=== PATIENT | male | born 1955 | race Caucasian/White ===

== ENCOUNTER 2025-03-24 18:48 | Emergency (ER) | payer OTHER, SELFPAY ==
[2025-03-24 19:07] VITALS: BP 135/80
[2025-03-24 19:41] LABS: Hematocrit 44.5 % (39.0-52.0); Hemoglobin 15.0 g/dL (13.0-18.0); Mean Corp Hgb Conc. 33.7 g/dL (33.0-37.0); Mean Corpuscular Volume 87.4 fL (80.0-94.0); Nucleated Red Blood Cells % 0 % (-); Platelet Count 221 10^3/uL (130-400); Red Cell Dist. Width 13.4 % (11.5-14.5)
[2025-03-24 19:55] LABS: ALT (SGPT) 40 U/L (0-50); AST (SGOT) 29 U/L (17-59); Albumin 4.6 g/dl (3.5-5.0); Alkaline Phosphatase 66 U/L (38-126); Blood Urea Nitrogen 25 mg/dl (9-20); Calcium 10.0 mg/dl (8.4-10.2); Carbon Dioxide 28 mmol/L (22-30); Chloride 104 mmol/L (98-107); Glucose 95 mg/dl (70-99); Potassium 4.7 mmol/L (3.5-5.1); Sodium 139 mmol/L (135-145); Total Protein 7.0 g/dl (6.3-8.2); eGFR > 60.00
[2025-03-24 19:56] LABS: Troponin I < 0.012 ng/ml
--- NOTE | 2025-03-24 22:23 | ED.GENMED ---
History of Present Illness
General
Chief Complaint: Chest Pain
Source: patient and spouse
Time Seen by Provider: 03/24/25 22:21
History of Present Illness
History of Present Illness:
69-year-old male presents to the emergency department with complaints of discomfort in the left side of his neck that will then radiate to the left anterior chest described as a 'tight' feeling. This has been going on for the past few months,
always seems to happen with activity, and resolves with resting. He never experiences any symptoms at rest. He also describes it as a 'pulling' and thinks that maybe it is related to activity. He describes himself is very active. He did take
nitroglycerin yesterday to see if it would help and did not notice a change. The last time he experienced this was yesterday during the daytime. He denies associated diaphoresis, dyspnea, fever, chills, back pain, headache, dizziness, swelling,
abdominal pain, nausea, vomiting, numbness, tingling, or other complaints. Patient has a history of coronary disease and as a result of the symptoms, contacted his inside sales person who states that he cannot be seen for many months.
Past History
Past History
ED Past Medical History: CAD
ED Past Surgical History: Cardiac
Social History
Tobacco: Non-smoker
Alcohol: None
Drug: None
Personal:
Living: with family
Phy Exam
Physical Exam
Physical Exam:
GENERAL: Alert , in no apparent distress
EYE: pupils equal and reactive
NECK: Supple, no significant adenopathy, moves neck easily without hesitation, no swelling noted, no tenderness to palpation.
ENT: o/p clr, mmm.
CARDIAC: Regular rate and rhythm .
LUNGS: Clear breath sounds bilaterally, no acute respiratory distress, no wheezes/rales/rhonchi
ABDOMEN: Soft, without focal tenderness, no r/g, no cvat
NEUROLOGICAL: Alert and oriented, no focal neuro deficits
SKIN: Warm and dry, skin intact.
MUSCULOSKELETAL: No edema, well perfused.
PSYCH: Normal and appropriate interaction.
Course
Orders/Labs/Results
Orders:
Orders
03/24/25 18:49
Electrocardiogram (*1) Urgent
Reason for Study: Chest Pain
EKG- Treatment ONCE
03/24/25 19:16
Electrocardiogram (*1) Urgent
Reason for Study: Other
Other Reason for Exam: Respiratory Distress
Cardiac Monitoring- Treatment ONCE
EKG- Treatment ONCE
IV Insert/Care/Rem.- Treatment PRN
CR Chest - 2 Views Urgent
Comment:
Reason For Exam: respiratory distress
O2 Therapy [RESP] Urgent
Titrate/Wean O2 to maintain O2 sat greater than (%): 93
Special Instructions: TO MAINTAIN CONTINUOUS O2 SATS >/= 93%
Pulse Ox/cont/shift [RESP] Urgent
Quantity: 1
Special Instructions: continuous pulse ox
03/24/25 19:24
Complete Blood Count/With Diff Urgent
Comprehensive Metabolic Panel Urgent
NT-proBNP Urgent
Troponin I Urgent
03/24/25 22:54
Troponin I Urgent
Abnormal Lab Results
03/24/25
19:24
MPV 10.6 H fL
(7.4-10.4)
Absolute Monos (auto) 0.7 H 10^3/uL
(0.1-0.6)
Eosinophils % 8.3 H %
(0-6)
BUN 25 H mg/dl
(9-20)
03/24/25 19:24
03/24/25 19:24
Vital Signs
Initial and Last Documented VS:
Initial Vital Signs
Temp Pulse Resp BP Pulse Ox
97.8 F 53 20 135/80 98
03/24/25 19:07 03/24/25 19:07 03/24/25 19:07 03/24/25 19:07 03/24/25 19:07
Last Documented Vital Signs
Temp Pulse Resp BP Pulse Ox
97.8 F 63 15 135/80 97
03/24/25 19:07 03/24/25 23:00 03/24/25 23:00 03/24/25 19:07 03/24/25 23:00
*Pulse Oximetry
SaO2: 98
Oxygen Mode of Delivery: Room air
Update Note
Update Note:
Patient presents to the Emergency Department with neck and chest pain on and off for 2 months
Number and Complexity of Problems Addressed at the Encounter
� Chronic conditions affecting care:
� Acute Exacerbation and/or Progression of Chronic Illness:
� Differential Diagnosis includes: But not limited to muscular strain, ACS, cervical radiculopathy, etc. etc.
Amount and/or Complexity of Data to be Reviewed and Analyzed
� I performed an independent evaluation of and my interpretation is:
EKG: Read by me, sinus bradycardia, no acute ischemia
CT:
Xrays: Read by radiology 1.2 cm nodular opacity projecting over the left upper chest. Recommend dedicated CT chest for further evaluation.
Laboratory Studies: Generally unremarkable
Other:
� Review of other/old records reveals:
� Clinical information was obtained by an independent historian: who is at bedside and provides medication list etc. of note, patient is not on medication for hypertension. He was also advised to just take Plavix and not
aspirin.
� Prescriptions/Medications Considered but not given:
� Further testing considered but not performed:
Risk of Complications and/or Morbidity or Mortality of Patient Management
� Social determinants of health affecting care:
� Discussion with other providers (PCP, Hospitalists, Consultants, etc):
� Escalation of care including admission/observation vs risk of discharge considered: 11:32 PM discussed with patient and in great detail my concerns. In regards to his chest x-ray abnormality they have already had a CAT
scan and follow-up to this, and have a pulmonary appointment this week. I strongly recommended that they continue this close follow-up regarding this chest x-ray abnormality and I will print out the x-ray report for their review with their doctor.
In regards to his symptoms, presuming his second troponin is within normal limits, and patient has been chest pain-free for at least 24 hours, he is stable for discharge from the emergency department with the understanding that he will be seen this
week by his inside sales person. I made a clear that if his inside sales person is unable to see him, that he must contact the inside sales person that is on his referring paperwork here. Discussed with him importance of this follow-up and reasons to return to the
emergency department.
ED Attending Note
-
Portions of this chart may have been created with voice recognition software.� Occasional wrong word or��sound alike� substitutions may have occurred due to the inherent limitations of voice recognition software.
Discharge Plan
Departure
Patient Disposition: Home (Routine Discharge)
Date of Disposition: 03/24/25
Time of Disposition: 23:34
Patient with high blood pressure during this ER visit?: Yes
Condition: Good
Discharge Problem:
Chest pain
Instructions: Chest Pain NON-[facility] Follow Up
Referrals:
Fly Reyes MD [Active, Cardiology] - Follow up in 2-3 days
Activity Restrictions/Additional Instructions:
PLEASE SEE ATTACHED X-RAY REPORT. THERE IS ABNORMALITY NOTED THAT REQUIRES VERY CLOSE FOLLOW-UP. SEE YOUR DOCTOR THIS WEEK CONCERNING THIS. IT IS ALSO EXTREMELY IMPORTANT THAT YOU SEE YOUR [facility] AND FOLLOW-UP WITHIN THE NEXT 2 TO 3 DAYS.
IF YOU ARE UNABLE TO DO SO, PLEASE CALL THE [facility] HERE. IF YOU DEVELOP RECURRENT CHEST PAIN, ANY SHORTNESS OF BREATH, NUMBNESS, VOMITING, OR OTHER WORRISOME SIGNS, PLEASE RETURN TO THE ER IMMEDIATELY!
Interventions
Interventions:
*Risk Screen - Suicide Last Done: 03/24/25 19:07
*General Assessment Last Done: 03/24/25 19:07
*Neglect/Abuse Screening Last Done: 03/24/25 19:07
*ED- Fall Risk Assessment Last Done: 03/24/25 19:07
*ED COVID-19 Vaccine History Last Done: 03/24/25 19:07
ED- Cardiac Assessment Last Done: 03/24/25 23:02
Discharge Date and Time
Print Language: ARABIC
[2025-03-24 22:59] VITALS: BMI 27.0
[2025-03-24 23:00] VITALS: BP 125/95
[2025-03-24 23:38] LABS: Troponin I < 0.012 ng/ml
== END 2025-03-25 | disposition home or self-care (01) ==
LOC: EMR 18:48
PROVIDERS: EMERGENCY PHYSICIAN Emergency Medicine; FAMILY PHYSICIAN Internal Medicine
DX: R07.9 Chest pain, unspecified (principal); R91.8 Other nonspecific abnormal finding of lung field; R00.1 Bradycardia, unspecified; I25.10 Atherosclerotic heart disease of native coronary artery without angina pectoris
CPT/HCPCS: 99285; 71046; 80053; 83880; 84484; 85025; 93005